=== PATIENT | female | born 1960 | race Caucasian/White ===

== ENCOUNTER 2017-01-17 11:58 | Day surgery (SDC) | payer OTHER ==
[2017-01-16 12:28] LABS: BLOOD UREA NITROGEN 23 mg/dL (7-18)
[2017-01-16 18:23] LABS: ANA SCREEN POSITIVE (Negative)
[~2017-01-17] VITALS: Ht 165.1 cm; Wt 75.0 kg
[~2017-01-17 11:58] MED LIST: CALC-451 PO; CEPH-368 PO; ESTR42.53 VG; FAMO20TA37 PO; LISI-170 PO; NITR100C56 PO; OXYC-302 PO; POLY17PO5 PO; TRIA1TAB3 PO
[2017-01-17] MEDS ORDERED: SODIUM CHLORIDE 0.9% 1,000 ML IV SCH ×2 (13:52→16:01)
[2017-01-17] MEDS ORDERED: FENTANYL PF 100 MCG/2ML ONE (14:39)
[2017-01-17] MEDS ORDERED: MIDAZOLAM 1 MG/ML, 5ML ONE (14:39)
[2017-01-17] MEDS ORDERED: LIDOCAINE 2%, 20ML ONE (14:40)
[2017-01-17] MEDS ORDERED: HEPARIN 1,000 UNITS/ML, 10ML ONE (14:47)
[2017-01-17] MEDS ORDERED: VERAPAMIL 2.5 MG/ML, 2ML ONE (14:47)
[2017-01-17 17:02] VITALS: BP 96/72
== END 2017-01-17 18:43 | disposition home or self-care (01) ==
LOC: CACL 11:58 → 5SO 16:55 → CACL 18:43
PROVIDERS: ATTEND Internal Medicine Cardiovascular Disease
DX: I27.0 Primary pulmonary hypertension (principal); I10 Essential (primary) hypertension
CPT/HCPCS: 36415; 80048; 83880; 85025; 85610; 85730; 86038; 86039; 93460; C1894; J1644; J2250; J3010; J3490; Q9967

== ENCOUNTER → 2017-02-05 | Outpatient (CLI) | payer OTHER | END | disposition home or self-care (01) | LOC: CFH 13:12 | PROVIDERS: ATTEND Nurse Practitioner Family | DX: S09.90XA Unspecified injury of head, initial encounter (principal); X58.XXXA Exposure to other specified factors, initial encounter; Y93.89 Activity, other specified; Y92.89 Other specified places as the place of occurrence of the external cause; Y99.8 Other external cause status | CPT/HCPCS: 70450 ==